=== PATIENT | female | born 1970 ===

== ENCOUNTER 2017-04-16 10:01 | Emergency (ER) | payer MEDICAID ==
[2017-04-16 10:06] VITALS: BMI 25.8
[2017-04-16 10:07] VITALS: BP 122/86; PULSE 91; RESP 20; TEMP 98.2; O2SAT 98
[2017-04-16] MEDS ORDERED: Naproxen 500 MG TAB PO STA (11:09)
--- NOTE | 2017-04-16 11:11 | ED PDOC ---
HPI: Head Injury Time Seen by Provider: 04/16/17 11:10 Chief Complaint (Nursing): Trauma Chief Complaint (Provider): head injury History Per: Patient (47 y/o female here for evaluation of trip and fall in bathroom today. ?LOC after states she feels she lost consciousness "a little bit." Notes headache and lower back pain. Did not take any medications prior to ED visit. Is not on any anticoagulants.) Past Medical History Reviewed: Historical Data, Nursing Documentation, Vital Signs Vital Signs: Last Vital Signs Temp 98.2 F 04/16/17 10:06 Pulse 91 H 04/16/17 10:06 Resp 20 04/16/17 10:06 BP 122/86 04/16/17 10:06 Pulse Ox 98 04/16/17 10:06 - Surgical History Surgical History: - Family History Family History: States: Unknown Family Hx - Immunization History Hx Tetanus Toxoid Vaccination: No Hx Influenza Vaccination: No (patient refused) Hx Pneumococcal Vaccination: No - Home Medications Home Medications: Ambulatory Orders Medication Instructions Recorded Acetaminophen/Aspirin/Caffei 1 tab PO 03/22/14 [Excedrin Extra Strength 250 mg-250 mg-65 mg] Oseltamivir [Tamiflu] 75 mg PO BID #0 cap 03/22/14 Naproxen 1 tab PO BID PRN #10 tab 04/16/17 - Allergies Allergies/Adverse Reactions: Allergies Allergy/AdvReac Type Severity Reaction Status Date / Time No Known Allergies Allergy Verified 04/16/17 11:13 Review of Systems ROS Statement: Except As Marked, All Systems Reviewed And Found Negative Physical Exam - Reviewed Nursing Documentation Reviewed: Yes Vital Signs Reviewed: Yes - Physical Exam Appears: Positive for: Well, Non-toxic, No Acute Distress Head Exam: Positive for: ATRAUMATIC, NORMAL INSPECTION, NORMOCEPHALIC Skin: Positive for: Normal Color, Warm, DRY Eye Exam: Positive for: EOMI, Normal appearance, PERRL ENT: Positive for: Normal ENT Inspection Neck: Positive for: Normal, Painless ROM Cardiovascular/Chest: Positive for: Regular Rate, Rhythm Respiratory: Positive for: CNT, Normal Breath Sounds Gastrointestinal/Abdominal: Positive for: Normal Exam, Bowel Sounds, Soft Back: Positive for: Normal Inspection Extremity: Positive for: Normal ROM Neurologic/Psych: Positive for: Alert, Oriented - ECG O2 Sat by Pulse Oximetry: 98 - Progress ED Course And Treament: HEAD CT: NO ACUTE PATHOLOGY NAPROXEN 500 MG X 1 DOSE Disposition - Clinical Impression Clinical Impression: Head injury, Low back strain - Patient ED Disposition Is Patient to be Admitted: No - Disposition Referrals: [facility] [Outside] Disposition: Routine/Home Disposition Time: 13:16 Condition: FAIR Prescriptions: Naproxen 1 tab PO BID PRN #10 tab PRN Reason: Pain, Moderate (4-7) Instructions: Head Injury (ED), Acute Low Back Pain (ED) Forms: [facility] (German), [facility] ED School/Work Excuse Print Language: YAKUT
[2017-04-16] MEDS ORDERED: Naproxen 500 MG TAB PO ONE (11:32)
--- NOTE | 2017-04-16 12:51 | CT ---
PROCEDURE: CT HEAD WITHOUT CONTRAST. HISTORY: head injury COMPARISON: None available. TECHNIQUE: Axial computed tomography images were obtained through the head/brain without intravenous contrast. Radiation dose: Total exam DLP = 921.4 mGy-cm. This CT exam was performed using one or more of the following dose reduction techniques: Automated exposure control, adjustment of the mA and/or kV according to patient size, and/or use of iterative reconstruction technique. FINDINGS: HEMORRHAGE: No intracranial hemorrhage. BRAIN: No mass effect or edema. No atrophy or chronic microvascular ischemic changes. VENTRICLES: Unremarkable. No hydrocephalus. CALVARIUM: Unremarkable. PARANASAL SINUSES: Unremarkable as visualized. No significant inflammatory changes. MASTOID AIR CELLS: Unremarkable as visualized. No inflammatory changes. OTHER FINDINGS: None. IMPRESSION: No acute intracranial pathology.
== END 2017-04-16 13:31 | disposition home or self-care (01) ==
LOC: H.ER 10:01
DX: S09.90XA Unspecified injury of head, initial encounter (principal); S39.012A Strain of muscle, fascia and tendon of lower back, initial encounter; W01.0XXA Fall on same level from slipping, tripping and stumbling without subsequent striking against object, initial encounter; Y92.89 Other specified places as the place of occurrence of the external cause